=== PATIENT | male | born 1980 | race Caucasian/White ===

== ENCOUNTER 2016-11-09 03:07 | Emergency (ER) | payer MEDICAID ==
[2016-11-09 03:16] VITALS: BP 129/96
--- NOTE | 2016-11-09 03:31 | EDM.PDOC ---
ED HPI GENERAL MEDICAL PROBLEM - General Chief Complaint: General Stated Complaint: Finger Pain Time Seen by Provider: 11/09/16 03:25 Source of Information: Reports: Patient. Denies: Old Records (No [facility] records available) History Limitations: Reports: No Limitations - History of Present Illness INITIAL COMMENTS - FREE TEXT/NARRATIVE: The patient drove himself to the emergency room via private automobile for evaluation of a contusion of the fourth finger of his left hand, which occurred at home at about 19:00 hours this past evening while working on his car at home. He did use some ice packs, however has not taken any medications for his symptoms. He rates his discomfort at 5/10 and has not been able to sleep. He denies any other complaints or injuries. No recent history of abdominal pain, heartburn, nausea, diarrhea, melena, gross hematochezia, or any food intolerance , including fatty foods, etc.. The patient also denies any recent fever, cough, wheezing, dyspnea, etc.. Onset: Today Onset Date: 11/08/16 Onset Time: 19:00 Duration: Constant Location: Reports: Upper Extremity, Left Quality: Reports: Throbbing Severity: Moderate Improves with: Reports: None Worsens with: Reports: None Context: Reports: Trauma (As above) Associated Symptoms: Reports: No Other Symptoms. 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 Left 4-Ring finger Pain Score (Numeric/FACES): 5 - Related Data Allergies Allergy/AdvReac Type Severity Reaction Status Date / Time No Known Allergies Allergy Verified 11/09/16 03:08 Home Meds: Home Meds Dicyclomine [Bentyl] 10 mg PO BID 11/09/16 [History] Dicyclomine [Bentyl] 20 mg PO BID 11/09/16 [History] Past Medical History Gastrointestinal History: Reports: Irritable Bowel Syndrome Social & Family History - Tobacco Use Smoking Status *Q: Never Smoker Smoking Cessation Information Provided To Patient: No ED ROS GENERAL - Review of Systems Review Of Systems: ROS reveals no pertinent complaints other than HPI. ED EXAM, GENERAL - Physical Exam Exam: See Below Exam Limited By: No Limitations General Appearance: Alert, WD/WN, No Apparent Distress, Anxious (Mild) Head: Atraumatic, Normocephalic Neck: Normal Inspection, Supple, Non-Tender, Full Range of Motion. No: Lymphadenopathy (L), Lymphadenopathy (R), Thyromegaly Respiratory/Chest: No Respiratory Distress, Lungs Clear, Normal Breath Sounds, No Accessory Muscle Use, Chest Non-Tender. No: Pleural Rub, Retractions Cardiovascular: Normal Peripheral Pulses, Regular Rate, Rhythm, No Edema, No Gallop, No JVD, No Murmur, No Rub. No: Gallop/S3, Gallop/S4, Friction Rub Peripheral Pulses: 4+: Radial (L) GI/Abdominal: Normal Bowel Sounds, Soft, Non-Tender, No Organomegaly, No Distention, No Abnormal Bruit, No Mass (Male) Exam: Deferred Rectal (Males) Exam: Deferred Back Exam: Normal Inspection, Full Range of Motion. No: Muscle Spasm Extremities: Normal Range of Motion, No Pedal Edema, Normal Capillary Refill, Other (Small proximal basal subungual hematoma of digit #4 of the left hand with no crepitation, deformity, or evidence of fracture, foreign body, etc.). No: Joint Swelling, Increased Warmth Neurological: Alert, Oriented, CN II-XII Intact, Normal Cognition, Normal Gait, No Motor/Sensory Deficits Psychiatric: Anxious (Mild). No: Depressed Mood Skin Exam: Wound/Incision (As above). No: Diaphoretic Lymphatic: No Adenopathy ED GENERAL MEDICAL PROCEDURES - Additional/Other Procedure(s) Other (Free Text) Procedure(s): Disposable cautery unit was used to perform 1 jana hole at the base of the nail of digit #4 of the left hand with excellent results and no pain to the patient. No complications Course - Vital Signs Last Recorded V/S: Last Vital Signs Temp 36.6 C 11/09/16 03:14 Pulse 89 11/09/16 03:14 Resp 16 11/09/16 03:14 BP 129/96 H 11/09/16 03:14 Pulse Ox 100 11/09/16 03:14 Vital Signs - 24 hr 11/09/16 03:14 Temperature [ 36.6 C Oral] Pulse, 89 Peripheral [ Right Pulse Oximetry] Respiratory 16 Rate Blood Pressure 129/96 H [Left Upper Arm ] O2 Sat by Pulse 100 Oximetry - Orders/Labs/Meds Orders: Active Orders 24 hr Category Date Time Status Obtain Past Medical Record [OM.PC] Routine Oth 11/09/16 03:32 Active Labs: None Meds: None - Radiology Interpretation Free Text/Narrative:: None Departure - Departure Time of Disposition: 03:50 Disposition: Home, Self-Care 01 Condition: Good Clinical Impression: Subungual hematoma of finger of left hand, Irritable bowel syndrome - Discharge Information Instructions: Subungual Hematoma, [id number] Referrals: PCP,None [Primary Care Provider] - Forms: ED Department Discharge Additional Instructions: 1. Follow up with your regular provider in 10-14 days as needed, if symptoms persist. 2. Tylenol and/or OTC ibuprofen should be dosed by the patient's weight as needed./directed. (Tylenol at 10 mg/kg every 4 hours. Ibuprofen at 5-10 mg/kg every 6 hours). Today's weight is about 3. Pressure on nail, hot water, etc. as discussed - Problem List & Annotations (1) Subungual hematoma of finger of left hand SNOMED Code(s): 448763188 Code(s): S60.10XA - CONTUSION OF UNSP FINGER WITH DAMAGE TO NAIL, INIT ENCNTR Status: Acute Priority: High Onset Date: 11/08/16 Annotation/ Comment:: Patient refused recommended x-ray. Successful replacement with excellent results. Care Instructions provided. Blood pressure somewhat elevated secondary to his anxiety. Observe for now with no previous history of hypertension. Continue to observe closely by his regular provider Qualifiers: Encounter type: initial encounter Qualified Code(s): S60.10XA - Contusion of unspecified finger with damage to nail, initial encounter (2) Irritable bowel syndrome SNOMED Code(s): 24318523 Code(s): K58.9 - IRRITABLE BOWEL SYNDROME WITHOUT DIARRHEA Status: Chronic Priority: Medium Annotation/Comment:: Stable by history Qualifiers: Irritable bowel syndrome type: with both diarrhea and constipation Qualified Code(s): K58.2 - Mixed irritable bowel syndrome - Problem List Review Problem List Initiated/Reviewed/Updated: Yes - My Orders Last 24 Hours: My Active Orders 11/09/16 03:32 Obtain Past Medical Record [OM.PC] Routine - Assessment/Plan Last 24 Hours: My Active Orders 11/09/16 03:32 Obtain Past Medical Record [OM.PC] Routine Assessment:: As above Plan: As above. Extensive precautions were given to the patient, who is in agreement with the treatment plan. See Patient Instructions for further treatment and plan.
== END 2016-11-09 03:45 | disposition home or self-care (01) ==
LOC: LL.ED 03:07
DX: S60.142A Contusion of left ring finger with damage to nail, initial encounter (principal); K58.9 Irritable bowel syndrome, unspecified; X58.XXXA Exposure to other specified factors, initial encounter
CPT/HCPCS: 11740; 99282; 99283